=== PATIENT | female | born 1955 | race Caucasian/White ===

== ENCOUNTER 2017-04-12 08:04 | Day surgery (SDC) | payer BC ==
[2017-04-11 10:28] VITALS: BMI 26.4
[2017-04-12] MEDS ORDERED: PROPOFOL 20 ML ONE ×2 (08:18)
[2017-04-12] MEDS ORDERED: LIDOCAINE HCL/PF 2% SDV 5ML VIAL ONE (08:19)
[2017-04-12 09:28] VITALS: TEMP 97.5
[2017-04-12 10:09] VITALS: BP 120/63; PULSE 73
== END 2017-04-12 10:10 | disposition home or self-care (01) ==
LOC: FASU-ENDO 08:04
PROVIDERS: ATTEND Internal Medicine Gastroenterology
PROC: 0DJD8ZZ Inspection of Lower Intestinal Tract, Via Natural or Artificial Opening Endoscopic (ICD-10-PCS; principal; 2017-04-12 08:57)
DX: Z12.11 Encounter for screening for malignant neoplasm of colon (principal); Z80.0 Family history of malignant neoplasm of digestive organs

== ENCOUNTER 2023-04-03 09:38 | Day surgery (SDC) | payer BC ==
[2023-03-31 12:44] VITALS: BMI 24.5
[2023-04-03] MEDS ORDERED: LIDOCAINE HCL/PF 2% SDV 5ML VIAL ONE (10:52)
[2023-04-03 11:44] VITALS: RESP 20; TEMP 97.4
[2023-04-03 11:54] VITALS: BP 105/61; PULSE 60
== END 2023-04-03 11:45 | disposition home or self-care (01) ==
LOC: FASU-ENDO 09:38
PROVIDERS: ATTEND Internal Medicine Gastroenterology
PROC: 0DJD8ZZ Inspection of Lower Intestinal Tract, Via Natural or Artificial Opening Endoscopic (ICD-10-PCS; principal; 2023-04-03 10:56)
DX: Z12.11 Encounter for screening for malignant neoplasm of colon (principal); Z80.0 Family history of malignant neoplasm of digestive organs